=== PATIENT | female | born 2000 | race Caucasian/White ===

== ENCOUNTER → 2025-01-26 | Outpatient (CLI) | payer MEDICAID, SELFPAY ==
--- NOTE | 2025-01-26 09:07 | RAD_ITS ---
PROCEDURE: ESOPHAGUS, single and double contrast 01/26/2025 REASON FOR EXAM: DYSPHAGIA TECHNIQUE: ESOPHAGUS, single and double contrast FLUOROSCOPIC TIME: 125 seconds. Dose: Total DAP 49.9 dGm-cm2. COMPARISON: None. FINDINGS: Visually, no abnormality of the swallowing mechanism was seen. The esophagus shows no area of persistent narrowing. No mucosal abnormality is seen. Normal esophageal motility was seen. A widely patent esophagogastric junction is noted. During the limited time of imaging, gastroesophageal reflux was not elicited. Limited views of the stomach and duodenum show no abnormality. RAD/Esophagus Dual Contrast IMPRESSION: Negative examination. Reading Location: [place] [id number]
== END | disposition home or self-care (01) ==
LOC: RAD 09:02
PROVIDERS: PCP Family Medicine
DX: R13.10 Dysphagia, unspecified (principal)
CPT/HCPCS: 74221